=== PATIENT | male | born 1955 | race Two or more races ===

== ENCOUNTER 2019-01-26 20:20 | Emergency (ER) | payer OTHER ==
[~2019-01-26] VITALS: Ht 185.4 cm; Wt 100.7 kg
[2019-01-26 20:34] VITALS: BP 125/72
--- NOTE | 2019-01-26 20:34 | NUR ---
ED Nurse Note: Patient walked in due to left cheek-jaw pain and swelling x 3 to 4 days, worsen on eating but denies toothache. Alert and oriented, verbally responsive. Afebrile. No SOB. Breathing even and unlabored. VSS.
[2019-01-26] MEDS ORDERED: AUGMENTIN 875-1 EAC1 ORAL (21:21)
--- NOTE | 2019-01-26 21:21 | Emergency Room Report ---
History of Present Illness General Chief Complaint: Pain Source: Patient Present Illness HPI Is a 63-year-old male with no significant past medical history. He presents with chief complaint of left jaw swelling. Onset today. Worse right after he eat. He said his swell up and tender to the ear. S gone down now. No fever chills but no nausea no vomiting. Denies any other complaint. No dental pain. Allergies: Coded Allergies: No Known Allergies (Unverified , 01/26/19) Patient History Past Medical History: see triage record, old chart reviewed Past Surgical History: none Pertinent Family History: none Social History: Denies: smoking Immunizations: other Reviewed Nursing Documentation: PMH: Agreed; PSxH: Agreed Nursing Documentation-PMH Past Medical History: No History, Except For Hx Hypertension: Yes Hx Diabetes: Yes Review of Systems Eye: Denies: eye pain, blurred vision ENT: Denies: ear pain, nose congestion, throat swelling Respiratory: Denies: cough, shortness of breath Cardiovascular: Denies: chest pain, palpitations Gastrointestinal: Denies: abdominal pain, diarrhea, nausea, vomiting Musculoskeletal: Denies: back pain, joint pain Skin: Denies: rash Neurological: Denies: headache, numbness Endocrine: Denies: increased thirst, increased urine Hematologic/Lymphatic: Denies: easy bruising All Other Systems: negative except mentioned in HPI Physical Exam Vital Signs Date Time Temp Pulse Resp B/P (MAP) Pulse Ox O2 Delivery O2 Flow Rate FiO2 01/26/19 20:31 98.4 72 18 125/72 (89) 96 Room Air Also normal Sp02 EP Interpretation: reviewed, normal General Appearance: well appearing, no apparent distress, alert Head: normocephalic, atraumatic Eyes: bilateral eye PERRL, bilateral eye EOMI ENT: hearing grossly normal, normal pharynx, other - Left face: Mild edema to the left cheek. No redness. On the inside there is some fullness to the bucca mucosa. No dental tenderness. Neck: full range of motion, supple, no meningismus Respiratory: chest non-tender, lungs clear, normal breath sounds Cardiovascular #1: regular rate, rhythm, no murmur Gastrointestinal: normal bowel sounds, non tender, no mass, no organomegaly, no bruit, non-distended Musculoskeletal: back normal, gait/station normal, normal range of motion Psychiatric: mood/affect normal Medical Decision Making Diagnostic Impression: Primary Impression: Sialolith ER Course This patient presents with symptoms consistent with a salivary duct stone. No evidence of any infection. I try to massage and expressed the stoma was unsuccessful. Will discharge home with reassurance. I will put him on antibiotics to decrease her of infection. Last Vital Signs Date Time Temp Pulse Resp B/P (MAP) Pulse Ox O2 Delivery O2 Flow Rate FiO2 01/26/19 20:31 98.4 72 18 125/72 (89) 96 Room Air Status: unchanged Disposition: HOME, SELF-CARE Condition: Stable Scripts Amoxicillin/Potassium Clav 875-125* (AUGMENTIN 875-125 TABLET*) 1 Each Tablet 1 TAB ORAL TWICE A DAY, #14 TAB Prov: Elliot Melgar MD 01/26/19 Additional Instructions: Increase fluid. Increase sour food like josi. Massage the inside of the cheek with a clean hand. Follow-up with your doctor in 7 days. Return if symptoms worsen. Elliot Melgar MD Jan 26, 2019 21:21
[2019-01-26 21:29] VITALS: BP 125/72
--- NOTE | 2019-01-26 21:29 | NUR ---
ED Nurse Note: Pt cleared by ERMD for discharge. DC instructions/prescription was given and explained to pt and verbalized understanding of teachings. All medical deviecs such as ID band removed. Pt is AAO x4, ambulatory and left with all personal belongings.
== END 2019-01-26 21:29 | disposition home or self-care (01) ==
LOC: EMR 21:01
DX: K11.5 Sialolithiasis (principal); E11.9 Type 2 diabetes mellitus without complications; I10 Essential (primary) hypertension
CPT/HCPCS: 99282